=== PATIENT | male | born 1985 | race Caucasian/White ===

== ENCOUNTER 2019-01-12 06:04 | Emergency (ER) | payer OTHER ==
[~2019-01-12] VITALS: Ht 160 cm; Wt 59.0 kg
[~2019-01-12 06:04] MED LIST: NO MEDS
[2019-01-12] MEDS ORDERED: KETOROLAC 30MG/ML VIAL IM ONE (06:45)
[2019-01-12 07:00] VITALS: BP 128/80
== END 2019-01-12 07:25 | disposition home or self-care (01) ==
LOC: ER 06:04
DX: K08.89 Other specified disorders of teeth and supporting structures (principal); F12.10 Cannabis abuse, uncomplicated; Z98.890 Other specified postprocedural states
CPT/HCPCS: 96372; 99283; J1885

== ENCOUNTER 2019-04-26 20:26 | Emergency (ER) | payer SELFPAY ==
[~2019-04-26] VITALS: Ht 157.5 cm; Wt 57.0 kg
[2019-04-26 21:15] VITALS: BP 116/71
== END 2019-04-27 01:50 | disposition left against medical advice (07) ==
LOC: ER 04-27 00:57
DX: Z53.21 Procedure and treatment not carried out due to patient leaving prior to being seen by health care provider (principal)

== ENCOUNTER 2021-07-07 18:09 | Emergency (ER) | payer OTHER ==
[~2021-07-07] VITALS: Ht 157.5 cm; Wt 59.0 kg
[2021-07-07 18:22] VITALS: BP 125/75
== END 2021-07-07 23:28 | disposition left against medical advice (07) ==
LOC: ER 18:09
DX: J02.9 Acute pharyngitis, unspecified (principal); Z53.21 Procedure and treatment not carried out due to patient leaving prior to being seen by health care provider